=== PATIENT | female | born 1960 | race Caucasian/White ===

== ENCOUNTER 2018-01-24 11:27 | Emergency (ER) | payer BC ==
[~2018-01-24] VITALS: Ht 160 cm; Wt 65.0 kg
[2018-01-24 11:38] VITALS: Ht 160 cm; Wt 65.0 kg
[2018-01-24] MEDS ORDERED: ACETAMINOPHEN 500 MG TAB PO STA (11:53)
[2018-01-24] MEDS ORDERED: KETOROLAC TROMETHAMINE 60 MG/2 ML VIAL IM STA (11:53)
[2018-01-24] MEDS ORDERED: TRAM-10 PO (11:58)
[2018-01-24] MEDS ORDERED: CYCL10TA6 PO (11:58)
[2018-01-24] MEDS ORDERED: GABA-1693 PO (11:58)
--- NOTE | 2018-01-24 12:42 | DIAGNOSTIC IMAGING REPORT ---
L-SPINE MIN 4 VIEWS ROUTINE HISTORY: Back pain L lumbar radiculitis COMPARISON: None. FINDINGS: There is no fracture. No subluxation. Degenerative disc change most significant from L4 through S1. IMPRESSION: Moderate degenerative change. No acute process. The above report was generated using voice recognition software. It may contain grammatical, syntax or spelling errors. Electronically signed by: Gama Valdez M.D. 01/24/2018 12:40 PM Dictated Date/Time: 01/24/2018 12:38 PM
[2018-01-24] MEDS ORDERED: METH4PAK PO (12:51)
[2018-01-24] MEDS ORDERED: OXYC-90 PO (12:51)
--- NOTE | 2018-01-24 13:01 | EMERGENCY ROOM VISIT NOTE ---
History First contact with patient: 11:42 Chief Complaint: BACK PAIN Stated Complaint: BACK PAIN History of Present Illness The patient is a 57 year old female who presents to the Emergency Room with complaints of abrupt onset of lower back pain now radiating into the left posterior thigh to the knee. 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 She does not believe that there was any twisting motion when bending over in a forward direction. She has had persistent and worsening pain since that time. She denies any pain radiating up the back. She denies saddle anesthesia, bladder/bowel incontinence or left lower extremity weakness/foot drop. The patient denies any prior history of back issues. She has had prior neck surgery for cervical radiculitis. This was performed by Dr. Leal at [facility]. She has also followed with [facility] for other orthopedic issues. The patient reports that her pain is worsened with movement of the back. She denies any pain radiating into the abdomen. She rates her discomfort a 7 out of 10. Review of Systems 10 system review was performed and was negative except for pertinent positives and negatives as indicated in history of present illness Past Medical/Surgical History Medical Problems: (1) Cervical radiculopathy Surgical Problems: (1) History of cervical spinal surgery Family History Unremarkable Social History Smoking Status: Never Smoker Alcohol Use: occasionally Marital Status: Occupation Status: disabled Current/Historical Medications Scheduled Cyclobenzaprine Hcl (Flexeril), 10 MG PO BID Gabapentin (Neurontin), Unknown Dose PO NEEDED Methylprednisolone (Medrol Dosepak), 0 PO DAILY Tramadol (Ultram), 50 MG PO NEEDED Scheduled PRN Oxycodone Ir (Roxicodone Ir), 1 TAB PO Q4H PRN for Pain Physical Exam Vital Signs Date Time Temp Pulse Resp B/P (MAP) Pulse Ox O2 Delivery O2 Flow Rate FiO2 01/24/18 11:38 36.5 108 20 131/90 98 Room Air Physical Exam CONSTITUTIONAL: Healthy and well nourished. Alert and oriented X 3 with positive affect. Patient appears in mild to moderate discomfort, standing at the bedside. HEENT: Normocephalic, atraumatic. Pupils equal, round and reactive. NECK: Full active range of motion without discomfort. RESPIRATORY: Clear to auscultation bilaterally with no wheezing, crackles, rhonchi or stridor. CARDIOVASCULAR: Regular rate and rhythm with no murmurs, rubs or gallops. GASTROINTESTINAL: Bowel sounds present in all quadrants. Soft and nontender to palpation. MUSCULOSKELETAL: Examination shows tenderness to palpation through the left lower lumbar paraspinous muscle and SI joint. She has a mildly positive sitting straight leg raise. Negative logroll. No tenderness to palpation through the flank or other soft tissue. INTEGUMENTARY: No rash or other significant dermatologic conditions noted. NEUROLOGIC: No focal neurologic deficits noted. Lower extremities are sensory intact. Medical Decision & Procedures ER Provider Diagnostic Interpretation: My interpretation of lumbar spine x-ray shows notable degenerative disc disease at L4-5 and L5-S1. No other fractures or subluxations/spondylolisthesis noted. Radiologist report is as follows: L-SPINE MIN 4 VIEWS ROUTINE HISTORY: Back pain L lumbar radiculitis COMPARISON: None. FINDINGS: There is no fracture. No subluxation. Degenerative disc change most significant from L4 through S1. IMPRESSION: Moderate degenerative change. No acute process. Medications Administered Medications (Trade) Dose Ordered Sig/Evy Route Start Time Stop Time Status Last Admin Dose Admin Ketorolac Tromethamine (Toradol Inj) 60 mg NOW STAT IM 01/24/18 11:53 01/24/18 11:54 DC 01/24/18 12:21 60 MG Prednisone (PredniSONE TAB) 60 mg NOW STAT PO 01/24/18 11:53 01/24/18 11:54 DC 01/24/18 12:20 60 MG Acetaminophen (Tylenol Tab) 1,000 mg NOW STAT PO 01/24/18 11:53 01/24/18 11:54 DC 01/24/18 12:20 1,000 MG ED Course Patient history and physical exam were performed. Nurse's notes were reviewed. Vital signs were reviewed, showing a blood pressure 131/90. The patient appears in moderate discomfort. The patient was administered IM Toradol and prednisone 60 mg orally. X-rays of the lumbar spine shows degenerative disc disease of L4-5 and L5-S1. Radiographic studies were reviewed with the patient. The patient will be provided prescriptions for OxyIR 5 mg and a Medrol Dosepak. She was encouraged alternate ibuprofen and Tylenol for additional baseline pain relief. She may continue with her gabapentin and Flexeril as needed, but instructed to be careful that she does not become too sedated with these medications. She was instructed to follow-up with her PCP or [facility] for further reevaluation and management. The patient was happy with plan of care, voiced understanding of all discharge instructions, and rated her discomfort a 4 out of 10 at the conclusion of my exam. Medical Decision History and clinical exam findings are not consistent with cauda equina syndrome. She gives no history to suggest spinal abscess. Other differentials considered included hematoma, acute discitis, occult fracture or disc herniation. I do not suspect abdominal or pelvic referred pain. [facility] Monitoring Program Search Results: patient reviewed within database, no issues identified Medication Reconcilliation Current Medication List: was personally reviewed by me Blood Pressure Screening Patient's blood pressure: Elevated blood pressure Blood pressure disposition: Elevated BP felt to be situational Impression Primary Impression: Left lumbar radiculitis Departure Information Prescriptions Methylprednisolone (MEDROL DOSEPAK) 4 Mg Surinder 0 PO DAILY, #1 PKT Prov: Derek Marshall PA 01/24/18 Oxycodone Ir (Roxicodone Ir) 5 Mg Tab 1 TAB PO Q4H Y for Pain, #15 TAB For Initial Treatment Prov: Derek Marshall PA 01/24/18 Referrals No Doctor, Assigned (PCP) Patient Instructions [facility]
[2018-01-24 13:22] VITALS: BP 131/86; PULSE 99; TEMP 36.5; O2SAT 98
== END 2018-01-24 13:23 | disposition home or self-care (01) ==
LOC: C.EDB 11:28 → C.EDD 13:23
DX: M51.17 Intervertebral disc disorders with radiculopathy, lumbosacral region (principal)